=== PATIENT | female | born 1975 | race Hispanic/Latino ===

== ENCOUNTER 2017-09-01 06:27 | Emergency (ER) | payer SELFPAY ==
[2017-09-01] MEDS ORDERED: KEPPRA 1,000 MG/NS 0.75% 100ML 1,000 MG/100 ML BAG IV ONE (07:27)
[2017-09-01] MEDS ORDERED: ZOFRAN ODT PO ONE (07:56)
[2017-09-01 08:02] LABS: Hematocrit 34.8 % (30.3-42.9); Mean Corpuscular HGB Conc 32 % (30-34); Mean Corpuscular Volume 76 fl (79-97); Platelet Count 214 K/mm3 (140-440); Red Blood Count 4.61 M/mm3 (3.65-5.03); Red Cell Distribution Width 17.3 % (13.2-15.2)
[2017-09-01 08:05] LABS: Mean Corpuscular Hemoglobin 24 pg (28-32)
[2017-09-01 08:12] LABS: BUN/Creatinine Ratio 13; Blood Urea Nitrogen 8 mg/dL (7-17); Calcium 8.6 mg/dL (8.4-10.2); Hemolysis Index 6
--- NOTE | 2017-09-01 08:17 | Emergency Department Report ---
ED Seizure HPI - General Chief Complaint: Seizure Stated Complaint: SEIZURE Time Seen by Provider: 09/01/17 07:26 Source: patient, EMS Mode of arrival: Stretcher Limitations: No Limitations - History of Present Illness Initial Comments: Patient states "I had 2 seizures this morning". She states that she has run out of her seizure medicine for 4 days. 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 She reports no acute neurological change. She reports no headache. She reports no injury other than she thinks she bit her tongue. This had no fever or chills. Complaint: seizure Description of Episode: loss of consciousness -: second(s) Seizure History: known seizure disorder Place: home Possible Precipitating Event: none Associated Symptoms: denies other symptoms, other (chronic pain knees) - Related Data Previous Rx's Medication Instructions Recorded Last Taken Type levETIRAcetam [Keppra] 500 mg PO BID #60 tablet 09/01/17 Unknown Rx Allergies Allergy/AdvReac Type Severity Reaction Status Date / Time Penicillins Allergy Unknown Verified 09/01/17 06:51 sulfur Allergy Unknown Uncoded 09/01/17 06:51 ED Review of Systems ROS: Stated complaint: SEIZURE Other details as noted in HPI Constitutional: denies: chills, fever Eyes: denies: eye pain, eye discharge, vision change ENT: denies: ear pain, throat pain Respiratory: denies: cough, shortness of breath, wheezing Cardiovascular: denies: chest pain, palpitations Endocrine: no symptoms reported Gastrointestinal: denies: abdominal pain, nausea, diarrhea Genitourinary: denies: urgency, dysuria, discharge Musculoskeletal: as per HPI, arthralgia. denies: back pain, joint swelling Skin: denies: rash, lesions Neurological: as per HPI. denies: headache, weakness, paresthesias Psychiatric: denies: anxiety, depression Hematological/Lymphatic: denies: easy bleeding, easy bruising ED Past Medical Hx - Past Medical History Previous Medical History?: Yes Hx of Cancer: Yes (leukemia) Hx Seizures: Yes (Epilepsy) - Social History Smoking Status: Current Every Day Smoker Substance Use Type: None - Medications Home Medications: Home Medications Medication Instructions Recorded Confirmed Last Taken Type levETIRAcetam [Keppra] 500 mg PO BID #60 tablet 02/18/18 Unknown Rx ED Physical Exam - General Limitations: No Limitations General appearance: alert, in no apparent distress - Head Head exam: Present: atraumatic, normocephalic - Eye Eye exam: Present: normal appearance, PERRL, EOMI. Absent: scleral icterus - ENT ENT exam: Present: mucous membranes moist, other (no evidence of oral injury ( acute) looks like patient has had previous healed tongue injuries) - Neck Neck exam: Present: normal inspection. Absent: tenderness, meningismus - Respiratory Respiratory exam: Present: normal lung sounds bilaterally. Absent: respiratory distress - Cardiovascular Cardiovascular Exam: Present: regular rate, normal rhythm. Absent: systolic murmur, diastolic murmur, rubs, gallop - GI/Abdominal GI/Abdominal exam: Present: soft, normal bowel sounds. Absent: distended, tenderness, guarding, rebound, rigid - Extremities Exam Extremities exam: Present: normal inspection - Back Exam Back exam: Present: normal inspection - Neurological Exam Neurological exam: Present: alert, oriented X3, CN II-XII intact, motor sensory deficit (4+ out of 5 left leg strength) - Psychiatric Psychiatric exam: Present: normal mood, flat affect - Skin Skin exam: Present: warm, dry, intact, normal color. Absent: rash ED Course Vital Signs 09/01/17 09/01/17 09/01/17 06:35 06:41 06:46 Temperature 98.1 F Pulse Rate 90 88 Respiratory 17 11 L Rate Blood Pressure 117/80 117/80 Blood Pressure [Right] O2 Sat by Pulse 100 100 100 Oximetry 09/01/17 09/01/17 09/01/17 06:47 07:27 07:29 Temperature 98.1 F 98.6 F Pulse Rate 90 83 Respiratory 17 11 L 11 L Rate Blood Pressure Blood Pressure 117/80 115/78 [Right] O2 Sat by Pulse 100 100 Oximetry - Reevaluation(s) Reevaluation #1: Given a Gram of Keppra IV. Observed. 09/01/17 08:16 ED Medical Decision Making - Lab Data Result diagrams: 09/01/17 07:28 09/01/17 07:28 Laboratory Results - last 24 hr 09/01/17 09/01/17 07:28 07:28 WBC 7.9 RBC 4.61 Hgb 11.0 Hct 34.8 MCV 76 L MCH 24 L MCHC 32 RDW 17.3 H Plt Count 214 Sodium 141 Potassium 4.1 Chloride 104.8 Carbon Dioxide 21 L Anion Gap 19 BUN 8 Creatinine 0.6 L Estimated GFR > 60 BUN/Creatinine Ratio 13 Glucose 111 H Calcium 8.6 Critical care attestation.: If time is entered above; I have spent that time in minutes in the direct care of this critically ill patient, excluding procedure time. ED Disposition Clinical Impression: Seizure, Seizure disorder Disposition: - TO HOME OR SELFCARE Is pt being admited?: No Does the pt Need Aspirin: No Condition: Stable Instructions: Recurrent Seizures Adult (ED) Additional Instructions: Do not drive or operate machinery until cleared by a neurologist. Rx as directed. Return any acute change or problems. Follow-up with primary care clinic, personal primary care physician or neurologist Prescriptions: levETIRAcetam [Keppra] 500 mg PO BID #60 tablet Referrals: MICHELLE ARNDT MD [Staff Physician] - 3-5 Days [facility] [Provider Group] - 3-5 Days Time of Disposition: 09:01
[2017-09-01 09:20] VITALS: BP 93/66
== END 2017-09-01 09:42 | disposition home or self-care (01) ==
LOC: ED 06:27
DX: G40.909 Epilepsy, unspecified, not intractable, without status epilepticus (principal); F17.200 Nicotine dependence, unspecified, uncomplicated; G89.29 Other chronic pain; Z88.0 Allergy status to penicillin; Z88.2 Allergy status to sulfonamides; Z85.6 Personal history of leukemia
CPT/HCPCS: 36415; 80048; 84703; 85027; 96374; 99284; J1953; Q0162

== ENCOUNTER 2017-09-02 18:43 | Emergency (ER) | payer SELFPAY ==
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
[2017-09-02 23:49] VITALS: BP 128/78
== END 2017-09-02 23:55 | disposition home or self-care (01) ==
LOC: ED 18:43
DX: R10.9 Unspecified abdominal pain (principal); F17.200 Nicotine dependence, unspecified, uncomplicated; G40.909 Epilepsy, unspecified, not intractable, without status epilepticus; Z88.0 Allergy status to penicillin; Z88.2 Allergy status to sulfonamides
CPT/HCPCS: 99283